=== PATIENT | male | born 1935 | race Caucasian/White ===

== ENCOUNTER 2021-10-13 21:49 | Inpatient (IN) | payer MEDICARE, OTHER ==
[~2021-10-13] VITALS: Ht 179.1 cm; Wt 88.5 kg
[2021-10-13 21:15] VITALS: BP 128/76
[2021-10-13 22:16] VITALS: BP 109/73
[2021-10-13 22:30] VITALS: BP 128/76
[2021-10-13] MEDS ORDERED: DEXTROSE 50% SYRINGE 50 ML IV PRN (22:45)
[2021-10-13] MEDS ORDERED: COREG6.25 MG PO (22:47)
[2021-10-13] MEDS ORDERED: ELIQUIS2.5 MG PO (22:47)
[2021-10-13] MEDS ORDERED: SYNTHROID125 MCG PO (22:47)
[2021-10-13] MEDS ORDERED: LISINOPRIL10 MG PO (22:47)
[2021-10-13] MEDS ORDERED: CETIRIZINE HCL10 M1 PO (22:47)
[2021-10-13] MEDS ORDERED: PRAVASTATIN SOD20 MG PO (22:47)
[2021-10-13] MEDS: INSULIN REGULAR, HUMAN 100 UNIT/1 ML SQ SCH (23:13)
[2021-10-13 23:22] LABS: BASOPHILS # (AUTO) 0.1 (0.0-0.1); BASOPHILS % 0.6 % (0.0-1.0); EOSINOPHILS # (AUTO) 0.1 (0.0-0.4); EOSINOPHILS % 0.9 % (0.0-6.0); HEMATOCRIT 49.2 % (38.2-49.6); HEMOGLOBIN 16.8 g/dL (14.0-18.0); LYMPHOCYTES # (AUTO) 2.9 (1.0-3.2); MEAN CORPUSCULAR HEMOGLOBIN 30.9 pg (28-32); MEAN CORPUSCULAR HGB CONC 34.1 g/dL (31-35); MEAN CORPUSCULAR VOLUME 90.6 fL (81-99); MONOCYTES # (AUTO) 0.8 (0.2-0.8); MONOCYTES % 8.3 % (4.4-11.3); NEUTROPHILS # (AUTO) 5.6 (2.1-6.9); NEUTROPHILS % 58.2 % (38.7-80.0); PLATELET COUNT 248 x10e3/uL (140-360); RED BLOOD COUNT 5.43 x10e6/uL (4.3-5.7)
[2021-10-13 23:37] LABS: ANION GAP 16.6 mmol/L (8-16); CALCIUM 9.5 mg/dL (8.4-10.2); CREATININE, SERUM 1.34 mg/dL (0.72-1.25); POTASSIUM 4.6 mmol/L (3.5-5.1)
[2021-10-14] VITALS (10 sets, daily range): BP systolic 85–128; BP diastolic 47–85
[2021-10-14] MEDS ORDERED: MAGNESIUM HYDROXIDE 30 ML UDC PO PRN (10:45)
[2021-10-14] MEDS ORDERED: PANTOPRAZOLE SOD 40 MG TABEC PO ONE (11:00)
[2021-10-14] MEDS ORDERED: MAGNESIUM HYDROXIDE 30 ML UDC PO ONE (11:00)
[2021-10-14] MEDS: APIXAB 2.5 MG TABLET PO SCH ×2 (11:14→16:48)
[2021-10-14] MEDS: LISINOPRIL 10 MG TAB PO SCH (11:15)
[2021-10-14] MEDS: CARVEDILOL 3.125 MG TAB PO SCH ×2 (11:16→16:49)
[2021-10-14] MEDS: INSULIN REGULAR, HUMAN 100 UNIT/1 ML SQ SCH (11:19)
[2021-10-14 11:41] LABS: CHOL/HDL RATIO 4.9 (3.9-4.7)
[2021-10-14] MEDS: INSULIN LISPRO 100 UNIT/1 ML 3ML VIAL SQ SCH ×3 (16:42→21:07)
[2021-10-14] MEDS: DOCUSATE SODIUM 100 MG CAP PO SCH (16:48)
[2021-10-14] MEDS ORDERED: PRAVASTATIN 20 MG TAB PO SCH (21:00)
[2021-10-14] MEDS ORDERED: INSULIN GLARGINE 100 UNITS/ML VIAL SQ SCH (21:00)
[2021-10-15] VITALS (7 sets, daily range): BP systolic 64–112; BP diastolic 50–85
[2021-10-15 05:23] LABS: BASOPHILS % 0.3 % (0.0-1.0); EOSINOPHILS # (AUTO) 0.1 (0.0-0.4); EOSINOPHILS % 0.8 % (0.0-6.0); HEMATOCRIT 48.6 % (38.2-49.6); HEMOGLOBIN 16.4 g/dL (14.0-18.0); LYMPHOCYTES # (AUTO) 2.8 (1.0-3.2); MEAN CORPUSCULAR HEMOGLOBIN 30.7 pg (28-32); MEAN CORPUSCULAR HGB CONC 33.7 g/dL (31-35); MONOCYTES # (AUTO) 0.7 (0.2-0.8); MONOCYTES % 7.9 % (4.4-11.3); NEUTROPHILS # (AUTO) 5.2 (2.1-6.9); NEUTROPHILS % 58.2 % (38.7-80.0); PLATELET COUNT 265 x10e3/uL (140-360); RED BLOOD COUNT 5.34 x10e6/uL (4.3-5.7); RED CELL DISTRIBUTION WIDTH 12.2 % (11.7-14.4)
[2021-10-15 06:02] LABS: ALBUMIN 3.3 g/dL (3.5-5.0); ALBUMIN/GLOBULIN RATIO 1.2 (0.8-2.0); ANION GAP 12.6 mmol/L (8-16); CALCIUM 9.1 mg/dL (8.4-10.2); CREATININE, SERUM 1.32 mg/dL (0.72-1.25); POTASSIUM 4.6 mmol/L (3.5-5.1)
[2021-10-15] MEDS ORDERED: LEVOTHYROXINE SODIUM 125 MCG TAB PO SCH (06:30)
[2021-10-15] MEDS ORDERED: PANTOPRAZOLE SOD 40 MG TABEC PO SCH (07:30)
[2021-10-15] MEDS: INSULIN LISPRO 100 UNIT/1 ML 3ML VIAL SQ SCH ×4 (07:50→11:42)
[2021-10-15] MEDS: DOCUSATE SODIUM 100 MG CAP PO SCH (08:24)
[2021-10-15] MEDS: APIXAB 2.5 MG TABLET PO SCH (08:24)
[2021-10-15] MEDS: LISINOPRIL 10 MG TAB PO SCH (08:25)
[2021-10-15] MEDS: CARVEDILOL 3.125 MG TAB PO SCH (08:25)
[2021-10-15] MEDS ORDERED: PANTOPRAZOLE SO40 MG PO ×2 (13:57→15:57)
[2021-10-15] MEDS ORDERED: Insulin Lispro SQ (13:57)
[2021-10-15] MEDS ORDERED: COLACE100 MG PO (13:57)
[2021-10-15] MEDS ORDERED: PROTONIX20 MG PO (13:57)
[2021-10-15] MEDS ORDERED: Insulin Glargine SQ (13:57)
[2021-10-15] MEDS ORDERED: DOCUSATE SODIU100 MG PO (15:58)
[2021-10-15] MEDS ORDERED: INSULIN LISPRO 100 UNIT/1 ML 3ML VIAL SQ SCH (16:30)
== END 2021-10-15 16:37 | disposition home or self-care (01) | DRG 638 ==
LOC: MED/SURG 21:49
PROVIDERS: ADMIT Internal Medicine; ATTEND Internal Medicine
DX: E11.65 Type 2 diabetes mellitus with hyperglycemia (principal); E87.1 Hypo-osmolality and hyponatremia; J06.9 Acute upper respiratory infection, unspecified; E11.42 Type 2 diabetes mellitus with diabetic polyneuropathy; I49.5 Sick sinus syndrome; I48.91 Unspecified atrial fibrillation; I10 Essential (primary) hypertension; I25.10 Atherosclerotic heart disease of native coronary artery without angina pectoris; E03.9 Hypothyroidism, unspecified; E78.5 Hyperlipidemia, unspecified; K21.9 Gastro-esophageal reflux disease without esophagitis; Z95.0 Presence of cardiac pacemaker
CPT/HCPCS: 36415; 71046; 80048; 80053; 80061; 82948; 83036; 84439; 84443; 85025; 93005; 99251; J1817